=== PATIENT | female | born 1945 | race Caucasian/White ===

== ENCOUNTER 2020-12-01 10:10 | Outpatient (CLI) | payer MEDICARE, BC | END 2020-12-01 10:11 | disposition home or self-care (01) | LOC: CSHMRI 10:10 | PROVIDERS: ATTEND Specialist | DX: R42 Dizziness and giddiness (principal); M48.02 Spinal stenosis, cervical region; M47.812 Spondylosis without myelopathy or radiculopathy, cervical region; R90.82 White matter disease, unspecified; Z86.73 Personal history of transient ischemic attack (TIA), and cerebral infarction without residual deficits | CPT/HCPCS: 70553; 72141; 82565 ==

== ENCOUNTER 2022-08-08 13:23 | Outpatient (CLI) | payer MEDICARE, BC | END 2022-08-08 13:24 | disposition home or self-care (01) | LOC: CSHWCC 13:23 | PROVIDERS: ATTEND Nurse Practitioner Family | DX: S81.802D Unspecified open wound, left lower leg, subsequent encounter (principal); R60.0 Localized edema | CPT/HCPCS: 29581; 97139; G0463; 99204 ==

== ENCOUNTER 2022-08-22 12:47 | Outpatient (CLI) | payer MEDICARE, BC | END 2022-08-22 12:48 | disposition home or self-care (01) | LOC: CSHULT 12:47 | PROVIDERS: ATTEND Nurse Practitioner Family | DX: R60.0 Localized edema (principal); M79.662 Pain in left lower leg; S81.802D Unspecified open wound, left lower leg, subsequent encounter | CPT/HCPCS: 29581; 93971; 97139; 97605; G0463; 99212 ==

== ENCOUNTER 2022-09-06 09:57 | Outpatient (CLI) | payer MEDICARE, BC | END 2022-09-06 09:58 | disposition home or self-care (01) | LOC: CSHWCC 09:57 | PROVIDERS: ATTEND Nurse Practitioner Family | DX: S81.802D Unspecified open wound, left lower leg, subsequent encounter (principal); R60.0 Localized edema ==

== ENCOUNTER 2022-10-10 14:38 | Outpatient (CLI) | payer MEDICARE, BC | END 2022-10-10 14:39 | disposition home or self-care (01) | LOC: CSHWCC 14:38 | PROVIDERS: ATTEND Nurse Practitioner Family | DX: S81.802D Unspecified open wound, left lower leg, subsequent encounter (principal); R60.0 Localized edema ==

== ENCOUNTER 2022-11-07 13:38 | Outpatient (CLI) | payer MEDICARE, BC | END 2022-11-07 13:39 | disposition home or self-care (01) | LOC: CSHWCC 13:38 | PROVIDERS: ATTEND Nurse Practitioner Family | DX: S81.802D Unspecified open wound, left lower leg, subsequent encounter (principal) | CPT/HCPCS: 97139; G0463; 99213 ==

== ENCOUNTER 2022-12-05 13:57 | Outpatient (CLI) | payer MEDICARE, BC | END 2022-12-05 13:58 | disposition home or self-care (01) | LOC: CSHWCC 13:57 | PROVIDERS: ATTEND Nurse Practitioner Family | DX: S81.801D Unspecified open wound, right lower leg, subsequent encounter (principal); T81.89XD Other complications of procedures, not elsewhere classified, subsequent encounter; R60.0 Localized edema ==

== ENCOUNTER 2022-12-26 13:30 | Outpatient (CLI) | payer MEDICARE, BC | END 2022-12-26 13:31 | disposition home or self-care (01) | LOC: CSHWCC 13:30 | PROVIDERS: ATTEND Nurse Practitioner Family | DX: T81.89XD Other complications of procedures, not elsewhere classified, subsequent encounter (principal); S81.802D Unspecified open wound, left lower leg, subsequent encounter; R60.0 Localized edema ==

== ENCOUNTER 2023-03-25 09:57 | Outpatient (CLI) | payer MEDICARE, BC | END 2023-03-25 09:58 | disposition home or self-care (01) | LOC: CSHMAMMO 09:57 | PROVIDERS: ATTEND Internal Medicine | DX: M85.89 Other specified disorders of bone density and structure, multiple sites (principal) | CPT/HCPCS: 77080 ==